=== PATIENT | male | born 1985 | race Two or more races ===

== ENCOUNTER 2016-02-21 21:08 | Emergency (ER) | payer OTHER ==
[~2016-02-21] VITALS: Ht 167.6 cm; Wt 60.8 kg
[2016-02-21 22:30] VITALS: BP 143/91
[2016-02-21] MEDS ORDERED: NAPR550T PO (23:00)
--- NOTE | 2016-02-21 23:00 | PHYS DOC ---
Past Medical History Past Medical History: No Pertinent History Past Surgical History: No Surgical History Alcohol Use: Occasionally Drug Use: None Adult General Chief Complaint Chief Complaint: KNEE INJURY [facility] HPI Patient is a 31 year old male comes emergency room today with complaint of left knee pain since last night. Patient states he was at a constitution party when he ran into a door at a friend's house. He states he's had been his knee since that period time. He denies any previous fractures/dislocations. Denies any history of bone forming disorders or inflammatory arthritide's. Patient reports that is overall concern is that he doesn't have the ability to perform certain activities. He presents a form to me from his employer that shows all the requirements that he has to perform on a daily basis. He states that he missed work today because he was not able to perform his duties. Of incidental note, patient does admit to drinking quite a bit of alcohol last night. Review of Systems Review of Systems Constitutional: Denies fever or chills [] Eyes: Denies change in visual acuity, redness, or eye pain [] HENT: Denies nasal congestion or sore throat [] Respiratory: Denies cough or shortness of breath [] Cardiovascular: No additional information not addressed in HPI [] GI: Denies abdominal pain, nausea, vomiting, bloody stools or diarrhea [] : Denies dysuria or hematuria [] Musculoskeletal: Denies back pain or joint pain [] Integument: Denies rash or skin lesions [] Neurologic: Denies headache, focal weakness or sensory changes [] Endocrine: Denies polyuria or polydipsia [] Allergies Allergies Allergies Coded Allergies Type Severity Reaction Last Updated Verified No Known Drug Allergies 02/21/16 No Physical Exam Physical Exam Constitutional: Well developed, well nourished, no acute distress, non-toxic appearance. [] HENT: Normocephalic, atraumatic, bilateral external ears normal, oropharynx moist, no oral exudates, nose normal. [] Eyes: PERRLA, EOMI, conjunctiva normal, no discharge. [] Neck: Normal range of motion, no tenderness, supple, no stridor. [] Cardiovascular:Heart rate regular rhythm, no murmur [] Lungs & Thorax: Bilateral breath sounds clear to auscultation [] Abdomen: Bowel sounds normal, soft, no tenderness, no masses, no pulsatile masses. [] Skin: Warm, dry, no erythema, no rash. [] Back: No tenderness, no CVA tenderness. [] Extremities: Left knee is normal in appearance. There is no fusiform swelling or erythema. There is no high riding patella. Flexor and extensor mechanism is intact. There is tenderness to palpation to the lateral aspect of the patella. There is no palpable defect, deformity or crepitus. Ligaments are stable solid endpoints. Neurologic: Alert and oriented X 3, normal motor function, normal sensory function, no focal deficits noted. [] Psychologic: Affect normal, judgement normal, mood normal. [] Current Patient Data Vital Signs Vital Signs Date Time Temp Pulse Resp B/P Pulse Ox O2 Delivery O2 Flow Rate FiO2 02/21/16 22:30 98.0 87 18 97 Room Air 98.0 EKG EKG [] Radiology/Procedures Radiology/Procedures 3 views of patient's left knee were performed with adequate technique and reviewed by Dr. Paniagua and myself. There is no evidence of acute bony injury or soft tissue swelling. Course & Med Decision Making Course & Med Decision Making Pertinent Labs and Imaging studies reviewed. (See chart for details) [] Dragon Disclaimer Dragon Disclaimer This electronic medical record was generated, in whole or in part, using a voice recognition dictation system. Departure Departure Impression: Primary Impression: Knee contusion Disposition: 01 HOME, SELF-CARE Condition: GOOD Referrals: ZIYAD MCDERMOTT MD (PCP) Patient Instructions: Contusion, [id number] Additional Instructions: 1. The x-rays appeared knee today are normal. 2. You have a bruise of your knee. 3. Take the medication as prescribed. 4. You are able to perform all your duties at work with the exception of deep knee bending. Avoid deep knee bending for the next 7 days. 5. A pamphlet is provided to you with a list of primary care doctor's offices. Call one of those offices tomorrow to schedule follow-up appointment for the next week. Scripts Naproxen Sodium (Anaprox Ds)550 Mg [id number] Mg PO Q12HR #20 Prov:PEYTON HOGUE 02/21/16 PEYTON HOGUE Feb 21, 2016 23:00
--- NOTE | 2016-02-22 08:07 | RAD ---
Indication injury, pain. AP oblique and lateral views of the left knee were obtained. No bony abnormality is seen.
== END 2016-02-21 23:04 | disposition home or self-care (01) ==
LOC: ER 21:08
DX: S80.02XA Contusion of left knee, initial encounter (principal); W22.09XA Striking against other stationary object, initial encounter; Y93.89 Activity, other specified; Y99.8 Other external cause status; Y92.098 Other place in other non-institutional residence as the place of occurrence of the external cause
CPT/HCPCS: 73562; 99284

== ENCOUNTER 2016-02-27 14:51 | Emergency (ER) | payer OTHER ==
[~2016-02-27] VITALS: Ht 152.4 cm; Wt 58.5 kg
[~2016-02-27 14:51] MED LIST: CIPR250T30 PO; NAPR550T PO
[2016-02-27 15:09] VITALS: BP 129/80
--- NOTE | 2016-02-27 15:38 | PHYS DOC ---
Past Medical History Past Medical History: No Pertinent History Past Surgical History: No Surgical History Alcohol Use: Occasionally Drug Use: None Adult General Chief Complaint Chief Complaint: KNEE INJURY [facility] HPI Patient is a 31 year old male that presents the emergency department complaint of knee pain, which is now resolved. He is requesting a work note releasing him to return to duty. I did see the patient upon his initial presentation to this emergency room. Had a contusion to his knee. He was cleared at that time to return to work with the exception of deep knee bending and kneeling and squatting. He presents today with a work note for release to return to work. He states that he has no complaints or concerns at this time. Review of Systems Review of Systems Constitutional: Denies fever or chills [] Eyes: Denies change in visual acuity, redness, or eye pain [] HENT: Denies nasal congestion or sore throat [] Respiratory: Denies cough or shortness of breath [] Cardiovascular: No additional information not addressed in HPI [] GI: Denies abdominal pain, nausea, vomiting, bloody stools or diarrhea [] : Denies dysuria or hematuria [] Musculoskeletal: Denies back pain or joint pain [] Integument: Denies rash or skin lesions [] Neurologic: Denies headache, focal weakness or sensory changes [] Endocrine: Denies polyuria or polydipsia [] Allergies Allergies Allergies Coded Allergies Type Severity Reaction Last Updated Verified No Known Drug Allergies 10/24/15 No Physical Exam Physical Exam Constitutional: Well developed, well nourished, no acute distress, non-toxic appearance. [] HENT: Normocephalic, atraumatic, bilateral external ears normal, oropharynx moist, no oral exudates, nose normal. [] Eyes: PERRLA, EOMI, conjunctiva normal, no discharge. [] Neck: Normal range of motion, no tenderness, supple, no stridor. [] Cardiovascular:Heart rate regular rhythm, no murmur [] Lungs & Thorax: Bilateral breath sounds clear to auscultation [] Abdomen: Bowel sounds normal, soft, no tenderness, no masses, no pulsatile masses. [] Skin: Warm, dry, no erythema, no rash. [] Back: No tenderness, no CVA tenderness. [] Extremities: No tenderness, no cyanosis, no clubbing, ROM intact, no edema. [] Neurologic: Alert and oriented X 3, normal motor function, normal sensory function, no focal deficits noted. [] Psychologic: Affect normal, judgement normal, mood normal. [] Current Patient Data Vital Signs Vital Signs Date Time Temp Pulse Resp B/P Pulse Ox O2 Delivery O2 Flow Rate FiO2 02/27/16 15:09 97.8 87 20 94 Room Air 97.8 EKG EKG [] Radiology/Procedures Radiology/Procedures [] Course & Med Decision Making Course & Med Decision Making Pertinent Labs and Imaging studies reviewed. (See chart for details) [] Dragon Disclaimer Dragon Disclaimer This electronic medical record was generated, in whole or in part, using a voice recognition dictation system. Departure Departure Impression: Primary Impression: Knee contusion Additional Impression: Normal exam Disposition: HOME, SELF-CARE Condition: GOOD Referrals: NO PCP (PCP) Patient Instructions: Exam, Normal, Adult Additional Instructions: 1. You're cleared to return to work with no restrictions. 2. You had a bruise on your knee upon your initial evaluation. You were able to return to work at that time with the only restrictions of deep knee bending, kneeling and squatting. 3. Be sure to return the medical clearance form to the human resources office. Problem Qualifiers PEYTON HOGUE Feb 27, 2016 15:38
== END 2016-02-27 15:40 | disposition home or self-care (01) ==
LOC: MERGE 14:51 → ER 14:51
DX: S80.02XA Contusion of left knee, initial encounter (principal); X58.XXXA Exposure to other specified factors, initial encounter; Y93.89 Activity, other specified; Y92.89 Other specified places as the place of occurrence of the external cause; Y99.8 Other external cause status
CPT/HCPCS: 99281

== ENCOUNTER 2016-06-23 15:39 | Emergency (ER) | payer OTHER ==
[~2016-06-23] VITALS: Ht 154.9 cm; Wt 56.7 kg
[2016-06-23 15:58] VITALS: BP 140/93
--- NOTE | 2016-06-23 16:18 | RAD ---
Indication pain. Injury. AP oblique and lateral views of the right knee were obtained as well as a sunrise view. No bony abnormality is seen
[2016-06-23] MEDS ORDERED: TRAM-29 PO (16:29)
--- NOTE | 2016-06-23 16:30 | PHYS DOC ---
Past Medical History Past Medical History: No Pertinent History Past Surgical History: No Surgical History Alcohol Use: Occasionally Drug Use: None Adult General Chief Complaint Chief Complaint: LOWER EXT PAIN HPI HPI Patient is a 31 year old male with no significant medical history who presents with right knee contusion that began after he hit his right knee on a door 1 month ago. Patient is also requesting a note for work. Review of Systems Review of Systems Constitutional: Denies fever or chills [] Eyes: Denies change in visual acuity, redness, or eye pain [] Musculoskeletal: Right knee contusion Integument: Denies rash or skin lesions [] Neurologic: Denies headache, focal weakness or sensory changes [] Endocrine: Denies polyuria or polydipsia [] Allergies Allergies Allergies Coded Allergies Type Severity Reaction Last Updated Verified No Known Drug Allergies 02/21/16 No Physical Exam Physical Exam Constitutional: Well developed, well nourished, no acute distress, non-toxic appearance. [] HENT: Normocephalic, atraumatic, bilateral external ears normal, oropharynx moist, no oral exudates, nose normal. [] Eyes: PERRLA, EOMI, conjunctiva normal, no discharge. [] Skin: Warm, dry, no erythema, no rash. [] Back: No tenderness, no CVA tenderness. [] Extremities: Right knee with no obvious deformity. No tenderness on exam. Full range of motion to the right knee. Negative Woo sign and negative Kishore' s sign negative anterior-posterior drawer sign to the right knee. +2 right pedal pulse. Cap refill less than 2 seconds the right lower extremity. Sensation intact to the right lower extremity. Neurologic: Alert and oriented X 3, normal motor function, normal sensory function, no focal deficits noted. [] Psychologic: Affect normal, judgement normal, mood normal. [] Current Patient Data Vital Signs Vital Signs Date Time Temp Pulse Resp B/P (MAP) Pulse Ox O2 Delivery O2 Flow Rate FiO2 06/23/16 15:58 98.0 68 16 99 Room Air 98.0 EKG EKG [] Radiology/Procedures Radiology/Procedures [] Course & Med Decision Making Course & Med Decision Making Pertinent Labs and Imaging studies reviewed. (See chart for details) Patient is in the ED with right knee contusion that happened one month ago after he hit his knee on a door. X-rays done in the ED today are negative for any acute findings. Discharged with [employer]. Provided a note for work. Follow-up with orthopedic doctor in one week, note for work provided. Sandra Disclaimer Sandra Disclaimer This electronic medical record was generated, in whole or in part, using a voice recognition dictation system. Departure Departure Impression: Primary Impression: Knee contusion Disposition: HOME, SELF-CARE Condition: STABLE Referrals: NO PCP (PCP) BROOKS CUELLAR MD You were seen for knee contusion. Follow-up with the orthopedic doctor provided in one week. Patient Instructions: Contusion, [id number] Additional Instructions: You were seen for right knee contusion. Please follow-up with the provided orthopedic doctor in one week. Ice and elevate the extremity. Take the prescribed medicines as needed. Scripts Tramadol Hcl (ULTRAM) 50 Mg Tablet 1 TAB PO TID, #30 TAB Prov: ELANA MEDINA APRN 06/23/16 Problem Qualifiers Primary Impression: Knee contusion Encounter type: subsequent encounter Laterality: right Qualified Codes: S80.01XD - Contusion of right knee, subsequent encounter ELANA MEDINA APRN June 23, 2016 16:30
== END 2016-06-23 16:43 | disposition home or self-care (01) ==
LOC: ER 15:39
DX: S80.01XD Contusion of right knee, subsequent encounter (principal); W22.03XA Walked into furniture, initial encounter; Y93.89 Activity, other specified; Y99.8 Other external cause status; Y92.89 Other specified places as the place of occurrence of the external cause
CPT/HCPCS: 73564; 99284

== ENCOUNTER 2017-05-09 18:21 | Emergency (ER) | payer OTHER | END 2017-05-09 18:57 | disposition home or self-care (01) | LOC: ER 18:21 | DX: M25.562 Pain in left knee (principal) | CPT/HCPCS: 99283 ==

== ENCOUNTER 2017-12-08 11:27 | Emergency (ER) | payer SELFPAY ==
[~2017-12-08] VITALS: Ht 152.4 cm; Wt 59.0 kg
[~2017-12-08 11:27] MED LIST changes: +NAPR-682 PO; -NAPR550T PO; +TRAM-48 PO; +TRAM50TA PO
[2017-12-08 11:30] VITALS: BP 147/92
[2017-12-08] MEDS ORDERED: HYDR-971 PO (11:59)
[2017-12-08] MEDS ORDERED: IBUP-1060 PO (11:59)
[2017-12-08] MEDS ORDERED: AMOX500T PO (11:59)
[2017-12-08] MEDS ORDERED: IBUPROFEN 400 MG TABLET. PO ONE (12:00)
[2017-12-08] MEDS ORDERED: AMOXICILLIN 250 MG CAPSULE. PO ONE (12:00)
[2017-12-08] MEDS ORDERED: HYDROcodone/APAP 5/325MG 1 TAB TABLET PO ONE (12:00)
--- NOTE | 2017-12-08 12:19 | PHYS DOC ---
Past Medical History Past Medical History: No Pertinent History Past Surgical History: No Surgical History Alcohol Use: Occasionally Drug Use: None Adult General Chief Complaint Chief Complaint: SORE THROAT HPI HPI Patient is a 32 year old male who presents with sore throat. Patient has been ill over the last week. He complains of sore throat and some lymphadenopathy. He has not had a fever but has had some chills. He denies any dental complaints. The pain, however, has been too bad that he states he has been unable to eat or drink. He is not complaining of swelling or difficulty breathing. Review of Systems Review of Systems Constitutional: Denies fever Eyes: Denies HENT: Denies nasal congestion Respiratory: Denies cough or shortness of breath Cardiovascular: No additional information not addressed in HPI Integument: Denies rash Neurologic: Denies headache All other systems were reviewed and found to be within normal limits, except as documented in this note. Current Medications Current Medications Current Medications Medications (Trade) Dose Ordered Sig/Shabbir Start Time Stop Time Status Last Admin Dose Admin Acetaminophen/ Hydrocodone Bitart (Lortab 5/325) 2 tab 1X ONCE 12/08/17 12:00 12/08/17 12:01 DC 12/08/17 12:12 2 TAB Amoxicillin (Amoxil) 500 mg 1X ONCE 12/08/17 12:00 12/08/17 12:01 DC 12/08/17 12:11 500 MG Ibuprofen (Motrin) 800 mg 1X ONCE 12/08/17 12:00 12/08/17 12:01 DC 12/08/17 12:12 800 MG Allergies Allergies Allergies Coded Allergies Type Severity Reaction Last Updated Verified No Known Drug Allergies 02/21/16 No Physical Exam Physical Exam Constitutional: Well developed, well nourished, no acute distress, non-toxic appearance HENT: Normocephalic, atraumatic, bilateral external ears normal, oropharynx moist, overall poor dentition, floor of mouth is soft, no abscess, neck is supple, + exudates over left tonsillar pillar, + injection and small aphthous ulcer is also seen in the posterior oral pharynx Eyes: PERRLA, EOMI, conjunctiva normal Neck: Normal range of motion, no tenderness, supple Cardiovascular:Heart rate regular rhythm, no murmur Lungs & Thorax: Bilateral breath sounds clear to auscultation Skin: Warm, dry, no erythema, no rash Neurologic: Alert and oriented X 3 Psychologic: Affect normal Current Patient Data Vital Signs Vital Signs Date Time Temp Pulse Resp B/P (MAP) Pulse Ox O2 Delivery O2 Flow Rate FiO2 12/08/17 12:12 18 97 Room Air 12/08/17 11:30 97.6 74 147/92 (110) 97.6 EKG EKG [] Radiology/Procedures Radiology/Procedures [] Course & Med Decision Making Course & Med Decision Making Pertinent Labs and Imaging studies reviewed. (See chart for details) I waited in the emergency department for a sore throat and some left ear pain. On examination, he is found to have findings suspicious for strep throat. The left TM was dull but did not appear infected. There was some lymphadenopathy in the left anterior cervical chain. Patient is given amoxicillin, ibuprofen, and [place] in the ER. He is discharged home on the same. He is advised to come back to the ER for any new or worsening symptoms. Otherwise, follow up with primary care doctor. Hanson Disclaimer Dragon Disclaimer This electronic medical record was generated, in whole or in part, using a voice recognition dictation system. Departure Departure Impression: Primary Impression: Pharyngitis Disposition: 01 HOME, SELF-CARE Condition: GOOD Patient Instructions: Strep Throat Scripts Ibuprofen (IBUPROFEN) 800 Mg Tablet 800 MG PO PRN TID PRN for MILD PAIN, #20 TAB take with food or milk to avoid upsetting stomach Prov: DALILA BENOIT DO 12/08/17 Hydrocodone/Apap 5-325 (NORCO 5-325 TABLET) 1 Each Tablet 1-2 EACH PO PRN Q6HRS PRN for severe pain, #15 as needed for pain Prov: DALILA BENOIT DO 12/08/17 Amoxicillin (AMOXICILLIN) 500 Mg Tablet 1 TAB PO TID, #30 TAB Prov: DALILA BENOIT DO 12/08/17 DALILA BENOIT DO Dec 08, 2017 12:19
== END 2017-12-08 12:20 | disposition home or self-care (01) ==
LOC: ER 11:27
DX: J02.9 Acute pharyngitis, unspecified (principal); R59.1 Generalized enlarged lymph nodes; K12.0 Recurrent oral aphthae; H92.02 Otalgia, left ear
CPT/HCPCS: 99284

== ENCOUNTER 2020-12-05 14:11 | Emergency (ER) | payer SELFPAY ==
[~2020-12-05] VITALS: Ht 157.5 cm; Wt 59.0 kg
[~2020-12-05 14:11] MED LIST changes: +AMOX500T PO; +HYDR-3164 PO; +IBUP-1060 PO
[2020-12-05] MEDS ORDERED: IV NORMAL SALINE 1000ML BAG 1,000 ML IV ONE (16:00)
[2020-12-05] MEDS ORDERED: CLINDAMYCIN 600MG PREMIX 50 ML IV ONE (16:00)
[2020-12-05] MEDS ORDERED: DEXAMETHASONE SOD PHOS 4 MG/ML VIAL IVP ONE (16:00)
[2020-12-05] MEDS ORDERED: fentaNYL PF VIAL 100 MCG/2 ML VIAL IVP ONE (16:00)
[2020-12-05] MEDS ORDERED: IOHEXOL 300 MG/ML 100ML VIAL. IV ONE (16:45)
[2020-12-05 17:06] LABS: BASO # 0.1 x10^3/uL (0.0-0.2); BASO % 1 % (0-3); EOS # 0.3 x10^3/uL (0.0-0.7); EOS % 2 % (0-3); HEMATOCRIT 47.1 % (39.0-53.0); HEMOGLOBIN 15.7 g/dL (13.0-17.5); LYMPH # 2.5 x10^3/uL (1.0-4.8); LYMPH % 16 % (24-48); MEAN CORPUSCULAR HEMOGLOBIN 30 pg (25-35); MEAN CORPUSCULAR HGB CONC 34 g/dL (31-37); MEAN CORPUSCULAR VOLUME 90 fL (79-100); MONO # 1.5 x10^3/uL (0.0-1.1); MONO % 9 % (0-9); NEUT # 11.4 x10^3/uL (1.8-7.7); NEUT % 72 % (31-73); PLATELET COUNT 195 x10^3/uL (140-400); RED BLOOD COUNT 5.24 x10^6/uL (4.30-5.70); RED CELL DISTRIBUTION WIDTH 14.3 % (11.5-14.5); WHITE BLOOD COUNT 15.9 x10^3/uL (4.0-11.0)
[2020-12-05] MEDS ORDERED: CONTRAST GIVEN. MC PRN (17:15)
[2020-12-05 17:16] LABS: CALCIUM 8.8 mg/dL (8.5-10.1); CREATININE 0.8 mg/dL (0.7-1.3); GFR 111.3; MAGNESIUM 1.8 mg/dL (1.8-2.4)
--- NOTE | 2020-12-05 17:43 | PHYS DOC ---
Past Medical History Past Medical History: No Pertinent History (RUSS ABREU DO) Past Surgical History: No Surgical History (RUSS ABREU DO) Smoking Status: Current Every Day Smoker Additional Information: 3-4 cigarettes daily Alcohol Use: Occasionally Drug Use: None (RUSS ABREU DO) General Adult EDM: Chief Complaint: SKIN RASH/ABSCESS HPI: HPI: Patient is a 35-year-old male presents with right earache and swelling behind his right ear which has been ongoing for the past 3 days. Denies fever or chills. Denies known trauma. Denies known insect bite. Patient reports associated earache. Patient reports trying to take Benadryl at approximately 1430 without any improvement. (RUSS ABREU DO) Review of Systems: Review of Systems: Constitutional: Denies fever or chills Eyes: Denies redness or eye pain HENT: Denies nasal congestion or sore throat; reports right ear pain and drainage Respiratory: Denies cough or shortness of breath Cardiovascular: Denies chest pain or palpitations GI: Denies abdominal pain, nausea, or vomiting : Denies dysuria or hematuria Musculoskeletal: Denies back pain or joint pain Integument: Denies rash or skin lesions; reports swelling and redness behind right ear Neurologic: Denies headache, focal weakness or sensory changes Complete systems were reviewed and found to be within normal limits, except as documented in this note. (RUSS ABREU DO) Heart Score: C/O Chest Pain: N/A (RUSS ABREU DO) Current Medications: Current Medications Medications (Trade) Dose Ordered Sig/Shabbir Start Time Stop Time Status Last Admin Dose Admin Clindamycin Phosphate 50 ml @ 100 mls/hr 1X ONCE 12/05/20 16:00 12/05/20 16:29 DC 12/05/20 17:16 100 MLS/HR Dexamethasone Sodium Phosphate (Decadron) 10 mg 1X ONCE 12/05/20 16:00 12/05/20 16:20 DC 12/05/20 17:12 10 MG Fentanyl Citrate (Fentanyl 2ml Vial) 50 mcg 1X ONCE 12/05/20 16:00 12/05/20 16:20 DC 12/05/20 17:07 50 MCG Info (CONTRAST GIVEN -- Rx MONITORING) 1 each PRN DAILY PRN 12/05/20 17:15 12/07/20 17:14 Iohexol (Omnipaque 300 Mg/ml) 70 ml 1X ONCE 12/05/20 16:45 12/05/20 17:07 DC Morphine Sulfate (Morphine Sulfate) 4 mg 1X ONCE 12/05/20 18:15 12/05/20 18:16 Sodium Chloride 1,000 ml @ 1,000 mls/hr 1X ONCE 12/05/20 16:00 12/05/20 16:59 DC 12/05/20 17:04 1,000 MLS/HR (RUSS ABREU DO) Allergies: Allergies: Allergies Coded Allergies Type Severity Reaction Last Updated Verified No Known Drug Allergies 02/21/16 No (RUSS ABREU DO) Physical Exam: PE: Constitutional: Well developed, well nourished, no acute distress, non-toxic appearance HENT: Normocephalic, atraumatic, right auricle displaced anteriorly with compression of canal, appearance of purulent drainage from canal Eyes: Conjunctiva normal, no discharge Neck: Normal range of motion, supple Lungs & Thorax: No respiratory distress, equal chest rise and fall Abdomen: Soft, no tenderness Skin: Warm, dry, post auricular fluctuant area noted which is tender to palpation and surrounding erythema Extremities: No tenderness, ROM intact, no edema Neurologic: Alert and oriented X 3, no focal deficits noted Psychologic: Affect normal, judgment normal (RUSS ABREU DO) Current Patient Data: Labs: Laboratory Tests Test 12/05/20 16:50 White Blood Count 15.9 x10^3/uL (4.0-11.0) H Red Blood Count 5.24 x10^6/uL (4.30-5.70) Hemoglobin 15.7 g/dL (13.0-17.5) Hematocrit 47.1 % (39.0-53.0) Mean Corpuscular Volume 90 fL (79-100) Mean Corpuscular Hemoglobin 30 pg (25-35) Mean Corpuscular Hemoglobin Concent 34 g/dL (31-37) Red Cell Distribution Width 14.3 % (11.5-14.5) Platelet Count 195 x10^3/uL (140-400) Neutrophils (%) (Auto) 72 % (31-73) Lymphocytes (%) (Auto) 16 % (24-48) L Monocytes (%) (Auto) 9 % (0-9) Eosinophils (%) (Auto) 2 % (0-3) Basophils (%) (Auto) 1 % (0-3) Neutrophils # (Auto) 11.4 x10^3/uL (1.8-7.7) H Lymphocytes # (Auto) 2.5 x10^3/uL (1.0-4.8) Monocytes # (Auto) 1.5 x10^3/uL (0.0-1.1) H Eosinophils # (Auto) 0.3 x10^3/uL (0.0-0.7) Basophils # (Auto) 0.1 x10^3/uL (0.0-0.2) Sodium Level 141 mmol/L (136-145) Potassium Level 4.0 mmol/L (3.5-5.1) Chloride Level 103 mmol/L (98-107) Carbon Dioxide Level 24 mmol/L (21-32) Anion Gap 14 (6-14) Blood Urea Nitrogen 9 mg/dL (8-26) Creatinine 0.8 mg/dL (0.7-1.3) Estimated GFR (Cockcroft-Gault) 111.3 Glucose Level 80 mg/dL (70-99) Lactic Acid Level 1.3 mmol/L (0.4-2.0) Calcium Level 8.8 mg/dL (8.5-10.1) Magnesium Level 1.8 mg/dL (1.8-2.4) Laboratory Tests 12/05/20 16:50 Laboratory Tests 12/05/20 16:50 Vital Signs: Vital Signs Date Time Temp Pulse Resp B/P (MAP) Pulse Ox O2 Delivery O2 Flow Rate FiO2 12/05/20 17:07 16 100 Room Air 12/05/20 16:16 71 143/83 (103) 12/05/20 15:26 98.5 98.5 (RUSS ABREU DO) EKG: EKG: [] (RUSS ABREU DO) Radiology/Procedures: Radiology/Procedures: [] (RUSS ABREU DO) Course & Med Decision Making: Course & Med Decision Making Pertinent Labs and Imaging studies reviewed. (See chart for details) Patient presents with anterior displacement of right ear and compression of ear canal with drainage and swelling behind right ear. Concern for significant infection. Labs obtained and pending. CT imaging also pending at this time. Empiric antibiotic and steroid initiated. Pain addressed. 1800-sign out given to Dr. Sawant for further evaluation and final disposition. Discussed current findings and plan with patient and family, who acknowledges understanding and agreement. (RUSS ABREU DO) Course & Med Decision Making I received this patient in signout with CT soft tissue/neck pending. CT returns and showed extensive soft tissue swelling around the right ear consistent with cellulitis/otitis externa with a 1 cm abscess on the posterior aspect of the external auditory canal/meatus with extensive narrowing. White count revealed a leukocytosis, and patient has required repeated doses of IV narcotics for analgesia. I discussed transfer with ENT at [facility] and they would be amenable to accepting patient for consultation. Awaiting callback from [facility] transfer service regarding bed availability. [phone] (NIEVES SAWANT MD) Dragon Disclaimer: Dragon Disclaimer: This electronic medical record was generated, in whole or in part, using a voice recognition dictation system. (RUSS ABREU DO) Departure Departure Impression: Primary Impression: Otitis externa Qualified Codes: H60.501 - Unspecified acute noninfective otitis externa, right ear Additional Impressions: Posterior auricular pain of right ear Abscess, ear canal Disposition: 02 SHORT TERM HOSPITAL Condition: STABLE Referrals: ZIYAD MCDERMOTT MD (PCP) RUSS ABREU DO Dec 05, 2020 17:43 NIEVES SAWANT MD Dec 05, 2020 18:49
--- NOTE | 2020-12-05 18:07 | RAD ---
CT NECK SOFT TISSUE WITH IV CONTRAST dated 12/05/2020 5:33 PM Indication:Reason: Right postauricular and neck swelling, concern for abscess, eval ear canal / Spl. Instructions: IV omni 300 70 mls / History: Comparison: No comparison is available. Technique: CT images were made in the neck using an infusion of 70 mL Omnipaque 300. Sagittal and cor onal reconstructions were performed. One or more of the following individualized dose reduction techniques were utilized for this examinat ion: 1. Automated exposure control 2. Adjustment of the mA and/or kV according to patient size 3. Use of iterative reconstruction technique Findings: There is extensive edema posterior to the right parotid gland up toward the ear. Just posterior to th e region of the external auditory canal, there is a low-attenuation region that could represent a sma ll abscess. This measures about 10 mm. The canal appears to be severely narrowed. No other fluid shereen ection is seen. There is no other apparent inflammatory process. No adenopathy is seen. The adjacent mastoid air cells in the right middle ear cavity are clear. The sinuses are clear. No abnormality is seen at the lung apices. IMPRESSION: There is soft tissue swelling around the right ear consistent with cellulitis. There appears to be a small abscess at the posterior aspect of the external auditory meatus with narrowing of the canal. No deeper inflammatory changes are seen. Electronically signed by: Bob Huertas Jr., MD (12/05/2020 6:04 PM) [facility]
[2020-12-05] MEDS ORDERED: MORPHINE SULFATE 4 MG/ML INJ. IVP ONE ×2 (18:15)
[2020-12-05 19:26] VITALS: BP 139/79
--- NOTE | 2020-12-07 09:11 | NUR ---
IP: Attempted to contact pt concerning covid results. Pt hung up on me x 2. Attempted again and left a message on voicemail to return the call.
--- NOTE | 2020-12-08 17:16 | NUR ---
IP: Informed pt of negative covid test. Pt verbalized understanding.
== END 2020-12-05 21:00 | disposition short-term general hospital (02) ==
LOC: ER 14:11
DX: H60.501 Unspecified acute noninfective otitis externa, right ear (principal); Z20.822 Contact with and (suspected) exposure to COVID-19; H66.41 Suppurative otitis media, unspecified, right ear; F17.210 Nicotine dependence, cigarettes, uncomplicated
CPT/HCPCS: 36415; 70491; 80048; 83605; 83735; 85025; 87040; 87426; 96365; 96375; 99285; J1100; J2270; J3010; J3490; J7030; Q9967; U0003; U0005